=== PATIENT | female | born 1975 | race Two or more races ===

== ENCOUNTER 2024-04-27 03:51 | Emergency (ER) | payer OTHER ==
[~2024-04-27] VITALS: Ht 167.6 cm; Wt 99.8 kg
[2024-04-27 05:15] LABS: COVID AG,FIA SOURCE NASAL SWAB
[2024-04-27 05:17] VITALS: BP 151/85; PULSE 85; RESP 18; TEMP 98.4; O2SAT 97
[2024-04-27] MEDS: ACETAMINOPHEN 500 MG TABLET PO ONE (05:40)
[2024-04-27] MEDS: KETOROLAC TROMETHAMINE 30 MG/ML VIAL IM ONE (05:41)
[2024-04-27] MEDS: GuaiFENesin/D-METHORPHAN [SUGAR-FREE] 200-20MG/10 ML SYRUP UDCUP PO ONE (05:41)
[2024-04-27 05:45] LABS: INFLUENZA TYPE A NEGATIVE FOR TYPE A (NEGATIVE); INFLUENZA TYPE B NEGATIVE FOR TYPE B (NEGATIVE)
[2024-04-27 05:47] LABS: SARS-COV2 (COVID) ANTIGEN,FIA Negative (Negative)
[2024-04-27] MEDS ORDERED: BENZ-227 PO (05:55)
== END 2024-04-27 07:13 | disposition home or self-care (01) ==
LOC: EMS 03:53
DX: J06.9 Acute upper respiratory infection, unspecified (principal); B97.89 Other viral agents as the cause of diseases classified elsewhere; R07.81 Pleurodynia; E03.9 Hypothyroidism, unspecified; Z20.822 Contact with and (suspected) exposure to COVID-19
CPT/HCPCS: 99284; 87426; 87804; 93005; 96372; J1885